=== PATIENT | female | born 1990 | race Caucasian/White ===

== ENCOUNTER 2017-09-28 12:00 | Emergency (ER) | payer MEDICAID ==
[2017-09-28] MEDS ORDERED: NS 1,000 ML IV ONE (12:07)
[2017-09-28 12:09] VITALS: RESP 16; TEMP 98.1
--- NOTE | 2017-09-28 12:35 | EDPHY ---
H & P Stated Complaint: low abd pain for 2days, denies fever, loose stools Time Seen by Provider: 09/28/17 12:07 HPI/ROS: This patient presents from [facility] urgent care with history of lower abdominal pain of 2 days duration. She reports that she had a negative urine test, urinalysis and a pelvic exam with question right ovary tenderness, otherwise normal. She explains that she awakened yesterday in the morning with abdominal pain lower belly that has increased intensity since then remained constant. She describes the pain as sharp and stabbing in nature. The pain is worse when she lies supine compared to when she sits up. He also worsens but with walking. No other exacerbating factors. Peak intensity is 9/10. She has never had this pain before. She arrived by private vehicle for further evaluation. ROS: No fevers or chills. No other constitutional symptoms HEENT: No recent URI symptoms other complaints Pulmonary: No cough shortness of breath Cardiovascular: No chest pain or heart palpitations or lightheadedness. No lower extremity swelling. GI: She reports a 6 month history of loose stools typically 3 bowel movements in the morning. No bloody stools. She has nausea this morning but no vomiting. : . No vaginal discharge. No dysuria frequency urgency. She reports amenorrhea with no menstrual. The last 6 years. She did see an hand cutter about this was told that if she gained 10 lb she should start having menses. Despite gaining 10 lb the time she reports no change in her amenorrheic state. She has not had further follow-up for this. Integumentary: No skin rash Endocrine: No complaints Neuro: No complaints Source: Patient Exam Limitations: No limitations - Personal History LMP (Females 10-55): Over 28 Days Ago Current Tetanus Diphtheria and Acellular Pertussis (TDAP): Yes Tetanus Vaccine Date: within 10 yrs - Medical/Surgical History PMH: Anorexia and bulimia in the past. She has since normalized her diet and is had a normal wait for size at this time. Other PMH: denies - Family History Significant Family History: No pertinent family hx - Social History Smoking Status: Never smoked Alcohol Use: Occasionally Drug Use: None - Physical Exam Exam: General Appearance: Alert, no distress. Eyes: Pupils equal and round no pallor or injection. ENT, Mouth: Mucous membranes moist. Respiratory: There are no retractions, lungs are clear to auscultation. Cardiovascular: Regular rate and rhythm. Gastrointestinal: Normoactive soft, positive suprapubic and right lower quadrant tenderness-moderate to exquisite with no rebound. Positive Rovsing's. Negative psoas Back: No CVA tenderness Neurological: GCS 15 Skin: Warm and dry, no rashes. Musculoskeletal: Neck is supple nontender. Extremities are symmetrical, full range of motion. Psychiatric: Mood and affect are normal DIFFERENTIAL DIAGNOSIS: After history and physical exam differential diagnosis was considered for appendicitis, ovarian mass, ovarian abscess, ectopic , constipation, colitis, mesenteric adenitis, Constitutional: Initial Vital Signs Temperature (C) 36.7 C 09/28/17 12:05 Heart Rate 73 09/28/17 12:05 Respiratory Rate 16 09/28/17 12:05 Blood Pressure 108/69 09/28/17 12:05 O2 Sat (%) 95 09/28/17 12:05 O2 Delivery Mode Room Air Allergies/Adverse Reactions: No Known Allergies Allergy (Unverified 09/28/17 12:04) Home Medications: Medication Instructions Recorded Hyoscyamine Sulfate [Levsin, 0.125 - 0.25 mg SL Q6 PRN #20 tab 09/28/17 Hyomax-Sl 0.125 mg (*)] Medical Decision Making - Diagnostics Imaging: Discussed imaging studies w/ test driver Radiologist (Spoke with Jeff Cooper-radiologist about CT scan abdomen and pelvis) ED Course/Re-evaluation: Studies: CBC reveals mild leukopenia. Otherwise normal, basic metabolic panel is normal. I reviewed labs sent from [facility] urgent care with negative test and negative urinalysis. IV is established. Patient declines normal saline bolus declines all medications. I discussed the pelvic and abdominal ultrasounds with our radiologist. The appendix is not visualized. Patient has small follicles bilateral ovaries but no significant cysts or other significant pathology. Given the patient's ongoing right lower quadrant pain of 2 days duration, increasing in intensity, I will obtain further imaging to evaluate for potential appendicitis. I Discussed this with the patient and proceeded to CT abdomen pelvis with IV contrast. CT abdomen pelvis clearly visualize the appendix with no evidence of appendicitis or other significant intra-abdominal pathology. She does have some increased fluid in the bowel possibly indicating a mild colitis. The cause of this patient's lower belly discomfort is unclear. We ruled out , ruled out appendicitis and UTI. Think it is likely that she has a mild infectious colitis versus autoimmune colitis. Will start her on Levsin p.r.n., Light diet follow up with Gastroenterology. I answered all the patient's questions prior to discharge. She understands need to return emergency department should she develop any significant worsening of her symptoms despite the treatment plan. - Data Points Laboratory Results: Laboratory Results 09/28/17 12:25 09/28/17 12:25 Medications Given: Discontinued Medications Sodium Chloride (Ns) 1,000 mls @ 0 mls/hr IV EDNOW ONE; Wide Open PRN Reason: Protocol Stop: 09/28/17 12:08 Last Admin: 09/28/17 13:59 Dose: Not Given Departure - Departure Disposition: Home, Routine, Self-Care Clinical Impression: Right lower quadrant abdominal pain Diarrhea Qualifiers: Diarrhea type: unspecified type Qualified Code(s): R19.7 - Diarrhea, unspecified Instructions: Acute Diarrhea (ED), Acute Abdominal Pain (ED) Additional Instructions: Diagnosis: 1. Right lower quadrant abdominal pain 2. Diarrhea Plan: Light diet until you feel improved. Levsin for cramping if needed Follow up with Dr. Peterson-proposal development manager for any ongoing symptoms. Return emergency department if you have any significant worsening of your symptoms despite treatment plan. Referrals: NONE *PRIMARY CARE P,. [Primary Care Provider] - As per Instructions Kamaljit Peterson MD [Medical Doctor] - As per Instructions Stand Alone Forms: Work Excuse Prescriptions: Hyoscyamine Sulfate [Levsin, Hyomax-Sl 0.125 mg (*)] 0.125 - 0.25 mg SL Q6 PRN # 20 tab PRN Reason: abdominal cramping
[2017-09-28 12:37] LABS: PLATELET COUNT 258 10^3/uL (150-400)
[2017-09-28] MEDS ORDERED: IOPAMIDOL (ISOVUE-300) 100 ML BTL ONE (14:17)
[2017-09-28 15:05] VITALS: BP 105/58; PULSE 75; O2SAT 98
== END 2017-09-28 15:38 | disposition home or self-care (01) ==
LOC: CED 12:00
DX: R10.31 Right lower quadrant pain (principal); R19.7 Diarrhea, unspecified
CPT/HCPCS: 74177-PO; 76705-PO; 76856-PO; 80048-PO; 84703-PO; 85025-PO; Q9967

== ENCOUNTER → 2017-10-19 | Outpatient (CLI) | payer MEDICAID | LOC: CIMAGING 10:14 | PROVIDERS: ATTEND Midwife | DX: R10.9 Unspecified abdominal pain (principal); R14.0 Abdominal distension (gaseous) | CPT/HCPCS: 76700-PO ==

== ENCOUNTER → 2017-10-20 | Outpatient (CLI) | payer MEDICAID | LOC: CIMAGING 17:10 | PROVIDERS: ATTEND Midwife | DX: R10.30 Lower abdominal pain, unspecified (principal); R14.0 Abdominal distension (gaseous) | CPT/HCPCS: 76856-PO ==

== ENCOUNTER 2018-06-22 10:41 | Emergency (ER) | payer MEDICAID ==
[2018-06-22] MEDS ORDERED: NS 1,000 ML IV ONE (11:27)
--- NOTE | 2018-06-22 11:28 | EDPHY ---
H & P Stated Complaint: ruq abd pain started 1 week ago, n/v started yesterday, denies fevers Time Seen by Provider: 06/22/18 10:48 HPI/ROS: 28 yo F presents c/o vomiting all week, somewhat better today, but she still has crampy abdominal pain, primarily right upper quadrant. No fever or chills. Pt has hx of anorexia. She denies suicidal or homicidal ideation. Review of systems As per HPI General no fever no chills no weakness HEENT no eye pain no eye discharge. No eye redness, no sore throat Respiratory no cough, no shortness of breath Cardiac no chest pain, no peripheral edema GI positive abdominal pain, no diarrhea, no constipation, positive nausea, positive vomiting no flank pain, no hematuria, no dysuria Musculoskeletal no myalgias, no joint pain Heme no easy bruising, no easy bleeding Endo no polyuria, no polydipsia Skin no rashes, no pruritus Neuro no syncope, no dizziness, no headaches Psych is no suicidal ideation, no homicidal ideation Source: Patient Exam Limitations: No limitations - Personal History LMP (Females 10-55): Over 28 Days Ago Tetanus Vaccine Date: 2008 - Medical/Surgical History Hx Asthma: No Hx Chronic Respiratory Disease: No Hx Diabetes: No Hx Cardiac Disease: No Hx Renal Disease: No Hx Cirrhosis: No Hx Alcoholism: No Hx HIV/AIDS: No Hx Splenectomy or Spleen Trauma: No Other PMH: Med hx-anoxrexia,gastritis. Surg-none - Family History Significant Family History: No pertinent family hx - Social History Smoking Status: Never smoked Alcohol Use: None Drug Use: None - Physical Exam Exam: 28 yo F alert and oriented in nad non toxic appearance extremely thin at, nc neck supple lungs cta bilat heart rapid [id number] abd nabs soft ruq mild ttp, no guarding, no rebound, no pulsatile masses, no masses ext no cce Constitutional: Initial Vital Signs Temperature (C) 36.4 C 06/22/18 10:50 Heart Rate 48 L 06/22/18 10:50 Respiratory Rate 18 06/22/18 10:50 Blood Pressure 95/49 L 06/22/18 10:50 O2 Sat (%) 100 06/22/18 10:50 O2 Delivery Mode Room Air Allergies/Adverse Reactions: No Known Allergies Allergy (Verified 06/22/18 10:50) Home Medications: Medication Instructions Recorded NK [No Known Home Meds] 03/03/18 Medical Decision Making ED Course/Re-evaluation: Pt seen and evaluated for crampy abdominal pain, and vomiting. IV established , pt given one liter normal saline. Labs sent CBC wnl cmp wnl mg wnl lipase wnl phos wnl lactate neg urine neg Impression gastritis, anorexia labs wnl no evidence for significant electrolyte abnormality or severe dehdyation after pt was given one liter she requested discharge she refused plain films of the abdomen Plan discharged home pt tolerating po at time of discharge Differential Diagnosis: Differential diagnosis considered but not limited to: Gastroenteritis, gastritis, severe dehydration, electrolyte abnormality, appendicitis, cholelithiasis, cholecystitis, pancreatitis - Data Points Laboratory Results: Laboratory Results 06/22/18 11:20 Medications Given: Discontinued Medications Sodium Chloride (Ns) 1,000 mls @ 0 mls/hr IV ONCE ONE PRN Reason: Wide Open Stop: 06/22/18 11:28 Last Admin: 06/22/18 11:38 Dose: 1,000 mls Point of Care Test Results: Chemistry 06/22/18 11:27 POC Sodium 142 mEq/L mEq/L (135-145) POC Potassium 4.3 mEq/L mEq/L (3.3-5.0) POC Chloride 106.0 mEq/L mEq/L (97-110) POC Total CO2 28 mEq/L mEq/L (22-31) POC BUN 3 mg/dL L mg/dL (7-23) POC Creatinine 1.0 mg/dL mg/dL (0.6-1.0) POC Glucose 65 mg/dL L mg/dL (70-100) POC Calcium 9.7 mg/dL mg/dL (8.5-10.4) POC Total Bilirubin 0.8 mg/dL mg/dL (0.1-1.4) POC AST 43 IU/L IU/L (14-46) POC ALT 36 IU/L IU/L (9-52) POC Alk Phosphatase 59 IU/L IU/L (38-126) POC Total Protein 7.0 g/dL g/dL (6.3-8.2) POC Albumin 3.8 g/dL g/dL (3.5-5.0) Blood Gas/Lactic Acid-Venous 06/22/18 11:33 POC Lactic Acid Shon 1.7 mmol/L mmol/L (0.7-2.1) Urine Collection Date 06/22/18 Collection Time 11:25 HCG Results Negative Urine Dip Collection Date 06/22/18 Collection Time 11:25 Specific [place] (1.002-1.030) 1.015 PH (5.0-7.5) 8.0 Leukocytes (Negative) Trace Nitrites (Negative) Negative Protein (Negative) Negative Glucose (Negative) Negative Ketones (Negative) Negative Urobilnogen (0.2-1.0 EU) 0.2 Bilirubin (Negative) Negative Blood (Negative) Negative Departure - Departure Disposition: Home, Routine, Self-Care Clinical Impression: Vomiting, Abdominal pain Condition: Good Instructions: Anorexia Nervosa (ED), Acute Nausea and Vomiting (ED), Abdominal Pain (ED) Additional Instructions: Please follow up with your primary care physician in 2-3 days if you continue to feel poorly. You are always welcome to return to the Emergency Department as well. Referrals: Bala Ellington MD [Primary Care Provider] - As per Instructions Stand Alone Forms: Work Excuse
[2018-06-22 12:10] LABS: PLATELET COUNT 230 10^3/uL (150-400)
[2018-06-22 14:02] VITALS: BP 90/48
== END 2018-06-22 12:51 | disposition home or self-care (01) ==
LOC: CED 10:41
DX: R10.11 Right upper quadrant pain (principal); R11.2 Nausea with vomiting, unspecified; E86.9 Volume depletion, unspecified
CPT/HCPCS: 80053-PO; 83605-PO

== ENCOUNTER 2018-07-01 10:38 | Emergency (ER) | payer MEDICAID ==
[2018-07-01] MEDS ORDERED: IOPAMIDOL (ISOVUE-300) 100 ML BTL ONE (12:10)
--- NOTE | 2018-07-01 13:03 | EDPHY ---
H & P Stated Complaint: bloated, constipation Time Seen by Provider: 07/01/18 10:46 HPI/ROS: 28 yo F presents c/o abdominal pain for several weeks, greatest in the llq, she also complains of intermittent constipation. She states she eats a vegan diet, and occasionally uses an herbal laxative when constipatied. She denies any recent changes in her diet, she does not take any medications. Review of systems As per HPI General no fever no chills no weakness HEENT no eye pain no eye discharge. No eye redness, no sore throat Respiratory no cough, no shortness of breath Cardiac no chest pain, no peripheral edema GI positive abdominal pain, no diarrhea, positive constipation, positive nausea , no vomiting no flank pain, no hematuria, no dysuria Musculoskeletal no myalgias, no joint pain Heme no easy bruising, no easy bleeding Endo no polyuria, no polydipsia Skin no rashes, no pruritus Neuro no syncope, no dizziness, no headaches Psych is no suicidal ideation, no homicidal ideation Source: Patient Exam Limitations: No limitations - Personal History Tetanus Vaccine Date: 2008 - Medical/Surgical History Hx Asthma: No Hx Chronic Respiratory Disease: No Hx Diabetes: No Hx Cardiac Disease: No Hx Renal Disease: No Hx Cirrhosis: No Hx Alcoholism: No Hx HIV/AIDS: No Hx Splenectomy or Spleen Trauma: No Other PMH: Med hx-anoxrexia,gastritis. Surg-none - Family History Significant Family History: No pertinent family hx - Social History Smoking Status: Never smoked Alcohol Use: None Drug Use: None - Physical Exam Exam: 28-year-old female alert and oriented no acute distress nontoxic appearance , afebrile, extremely thin HEENT atraumatic normocephalic, extraocular muscles intact, anicteric Oropharynx negative for erythema negative exudate, tolerating her own secretions Neck supple no meningismus Lungs clear to auscultation bilaterally Heart regular rate and rhythm without murmur rub or gallop Abdomen nondistended normoactive bowel sounds soft, left lower quadrant tenderness, no guarding no rebound no pulsatile masses Back no CVA tenderness, no step-offs, no spinal tenderness Extremities no cyanosis clubbing or edema Neuro alert and oriented, no focal deficits Constitutional: Initial Vital Signs Temperature (C) 36.9 C 07/01/18 10:45 Heart Rate 65 07/01/18 10:45 Respiratory Rate 18 11/18/18 10:45 Blood Pressure 96/53 L 07/01/18 10:45 O2 Sat (%) 99 07/01/18 10:45 O2 Delivery Mode Room Air Allergies/Adverse Reactions: No Known Allergies Allergy (Verified 07/01/18 10:50) Home Medications: Medication Instructions Recorded NK [No Known Home Meds] 03/03/18 Medical Decision Making - Diagnostics Imaging Results: Imaging Impressions Abdomen CT 07/01/18 11:41 Impression: Severe constipation. No evidence for diverticulitis. Results called and discussed with Lindsey Martínez MD on July 01, 2018 at 1259 hours. ED Course/Re-evaluation: Patient seen and evaluated for abdominal pain of several weeks duration as well as intermittent constipation and a concern on her part that she might have diverticulosis or diverticulitis. CBC Leukopenia at her baseline H&H mildly elevated consistent with dehydration BMP within normal limits Urinalysis negative for CT abdomen and pelvis No acute pathology, consistent with severe constipation Impression Constipation Plan Recommend bowel regimen with daily fiber supplement, mineral oil, milk of magnesia, and possible stool softener if needed Advised close follow-up with her primary care physician to get on a longer-term bowel regimen Differential Diagnosis: Differential diagnosis considered but not limited to Diverticulitis, diverticulosis, irritable bowel syndrome, appendicitis, constipation, gastritis, bowel obstruction - Data Points Laboratory Results: Laboratory Results 07/01/18 11:50 07/01/18 07/01/18 12:01 11:50 WBC 3.36 10^3/uL L 10^3/uL (3.80-9.50) RBC 4.57 10^6/uL 10^6/uL (4.18-5.33) Hgb 15.3 g/dL g/dL (12.6-16.3) Hct 43.9 % % (38.0-47.0) MCV 96.1 fL fL (81.5-99.8) MCH 33.5 pg pg (27.9-34.1) MCHC 34.9 g/dL g/dL (32.4-36.7) RDW 11.7 % % (11.5-15.2) Plt Count 214 10^3/uL 10^3/uL (150-400) MPV 11.1 fL fL (8.7-11.7) Neut % (Auto) 44.1 % % (39.3-74.2) Lymph % (Auto) 45.8 % H % (15.0-45.0) [place] % (Auto) 7.4 % % (4.5-13.0) Eos % (Auto) 1.2 % % (0.6-7.6) Baso % (Auto) 1.2 % % (0.3-1.7) Nucleat RBC Rel Count 0.0 % % (0.0-0.2) Absolute Neuts (auto) 1.48 10^3/uL L 10^3/uL (1.70-6.50) Absolute Lymphs (auto) 1.54 10^3/uL 10^3/uL (1.00-3.00) Absolute Monos (auto) 0.25 10^3/uL L 10^3/uL (0.30-0.80) Absolute Eos (auto) 0.04 10^3/uL 10^3/uL (0.03-0.40) Absolute Basos (auto) 0.04 10^3/uL 10^3/uL (0.02-0.10) Absolute Nucleated RBC 0.00 10^3/uL 10^3/uL (0-0.01) Immature Gran % 0.3 % % (0.0-1.1) Immature Gran # 0.01 10^3/uL 10^3/uL (0.00-0.10) POC Sodium 145 mEq/L mEq/L (135-145) POC Potassium 4.1 mEq/L mEq/L (3.3-5.0) POC Chloride 102.0 mEq/L mEq/L (97-110) POC Total CO2 28 mEq/L mEq/L (22-31) POC BUN 3 mg/dL L mg/dL (7-23) POC Creatinine 0.7 mg/dL mg/dL (0.6-1.0) POC Glucose 69 mg/dL L mg/dL (70-100) POC Calcium 10.0 mg/dL mg/dL (8.5-10.4) Point of Care Test Results: Chemistry 07/01/18 12:01 POC Sodium 145 mEq/L mEq/L (135-145) POC Potassium 4.1 mEq/L mEq/L (3.3-5.0) POC Chloride 102.0 mEq/L mEq/L (97-110) POC Total CO2 28 mEq/L mEq/L (22-31) POC BUN 3 mg/dL L mg/dL (7-23) POC Creatinine 0.7 mg/dL mg/dL (0.6-1.0) POC Glucose 69 mg/dL L mg/dL (70-100) POC Calcium 10.0 mg/dL mg/dL (8.5-10.4) Departure - Departure Disposition: Home, Routine, Self-Care Clinical Impression: Constipation Condition: Good Instructions: Constipation (ED), High Fiber Diet (ED) Additional Instructions: Consider trying a daily fiber supplement with psyllium. You may also try 1 teaspoon of mineral oil 4 times a day. Additionally a stool softener, over the counter twice a day, colace or docusate. Milk of magnesia at bedtime. Please follow up with your primary care to get advice on a longer term regimen for your constipation. Referrals: Wilbert Floyd, DO [Primary Care Provider] - As per Instructions
[2018-07-01 13:28] LABS: PLATELET COUNT 214 10^3/uL (150-400)
[2018-07-01 13:39] VITALS: BP 94/52
== END 2018-07-01 13:31 | disposition home or self-care (01) ==
LOC: CED 10:38
DX: K59.00 Constipation, unspecified (principal)
CPT/HCPCS: 74177-PO; 80048-PO; Q9967

== ENCOUNTER → 2018-09-07 | Outpatient (CLI) | payer MEDICAID | LOC: CIMAGING 07:54 | PROVIDERS: ATTEND Family Medicine | DX: R94.5 Abnormal results of liver function studies (principal); R10.11 Right upper quadrant pain | CPT/HCPCS: 76705-PO ==